=== PATIENT | male | born 1990 | race Caucasian/White ===

== ENCOUNTER 2020-02-17 19:33 | Emergency (ER) | payer OTHER ==
[~2020-02-17] VITALS: Ht 188 cm; Wt 70.3 kg
--- NOTE | ~2020-02-17 | EMS ---
[facility] [address] [place] [address] EMS Patient Care Report Name: EVY GONZALEZ Room #: DEP VIOLETTE Larsen#: [id number] Admission: 02/17/20 Attend Phys: Discharge: 02/17/20 Date of : [birth year] Report #: [id number] THIS REPORT FOR: //name// Report Transmitted: 02/18/2020 19:01 EMS Care Summary [place], [place]/[facility] Incident [id number] @ 02/18/2020 19:16 Incident Location [address] [place] [id number] Patient EVY GONZALEZ Male, 29 Years 1990 Patient Address HOMELESS Chief Complaint "TOOK ALL THE DRUGS" Disposition Transported No Lights/[place] Dispatch Reason Overdose/Poisoning/Ingestion Transported To [facility] Narrative UPON ARRIVAL PT STANDING WITH POLICE CONSCIOUS AND ALERT. POLICE STATE PT HAD WANDERED INTO A RANDOM HOUSE AND UP THE STAIRS WHEN POLICE WERE CALLED. PT WAS NOT VIOLENT JUST ACTING STRANGE LIKE HE LIVED THERE. PT STATES HE HAS DONE ALL THE DRUGS BUT WILL NOT STATE WHAT THEY WERE OR HOW THEY WERE TAKEN. PT DOES NOT ANSWER MOST QUESTIONS AND WILL MURMUR TO HIMSELF. PT DID TRY TO SWING FROM THE CEILING OF THE MBULANCE AT ONE POINT BUT WAS CALM FOR THE MOST PART. PT TRANSPORTED TO [facility] THAT IS WERE THE DISCHARGE PAPERWORK IN HIS POCKET STATES HE WAS YESTERDAY. Initial Vitals @19:35P: 105,CO: 3,SpO2: 96, @19:24P: 99,R: 20,BP: 133/92,Pain: 0/10,GCS: 14,SpO2: 98,Revised Trauma: 12, [facility] [address] [place] [address] EMS Patient Care Report Name: EVY GONZALEZ Room #: DEP Chava#: [id number] Admission: 02/17/20 Attend Phys: Discharge: 02/17/20 Date of : [birth year] Report #: [id number] @19:36P: 104,R: 20,BP: 130/87,GCS: 14,CO: 4,SpO2: 96,Revised Trauma: 12, Assessments @19:24MENTAL:Other,SKIN:HEENT:Head/Face: No Abnormalities,LUNG SOUNDS:General: No Abnormalities,ABDOMEN:General: No Abnormalities,PELVIS//GI:EXTREMITIES:Left Arm: No Abnormalities,Right Arm: No Abnormalities,Left Leg: No Abnormalities,Right Leg: No Abnormalities,PULSE:Radial: 2+ Normal,NEURO:No Abnormalities, Impression Behavioral/psychiatric episode Procedures @19:24ALS AssessmentResponse: UnchangedSucceeded Timeline 19:16,Call Received 19:16,Dispatch Notified 19:16,Dispatched 19:17,En Route 19:21,On Scene 19:22,At Patient 19:24,ALS Assessment,Response: UnchangedSucceeded, 19:24,BP: 133/92 M,PULSE: 99,RR: 20 R,SPO2: 98 Ox,ETCO2: ,BG: ,PAIN: 0,GCS: 14, 19:27,Depart Scene 19:35,BP: / M,PULSE: 105,RR: R,SPO2: 96 Ox,ETCO2: ,BG: ,PAIN: ,GCS: , 19:36,BP: 130/87 M,PULSE: 104,RR: 20 R,SPO2: 96 Ox,ETCO2: ,BG: ,PAIN: ,GCS: 14, 19:38,At Destination 20:00,Call Closed Disclaimer v1.1 Copyright 2020 [employer] This EMS Care Summary contains data elements from the applicable legal record (which may be displayed differently). It is designed to provide pertinent information for the following purposes: continuity of care, clinical quality, and state data reporting. The complete legal record is available to ED staff and administrators of the receiving hospital in [employer] Patient Tracker. All data is provided "as is."
[2020-02-17 20:53] LABS: ABSOLUTE NEUTROPHILS 3.2 thou/uL (1.4-8.2); WBC 5.5 thou/uL (4.0-11.0)
[2020-02-17 20:54] LABS: BASOPHILS 0.2 % (0.0-2.0); EOSINOPHILS 0.1 % (0.0-3.0); HEMATOCRIT 39.3 % (42.0-52.0); HEMOGLOBIN 13.4 gm/dL (14.0-18.0); LYMPHOCYTES 32.9 % (24.0-44.0); MCH 30.2 pg (26.0-34.0); MCHC 34.2 g/dL (28.0-37.0); MCV 88.2 fL (80.0-100.0); PLATELET COUNT 180 thou/uL (150-400); POLYS 57.8 % (36.0-66.0); RBC 4.46 mil/uL (4.50-6.00)
[2020-02-17 20:55] LABS: CREATININE 1.1 mg/dL (0.7-1.3); POTASSIUM 3.5 mmol/L (3.5-5.1)
[2020-02-17 20:56] LABS: MAGNESIUM 2.1 mg/dL (1.8-2.4)
[2020-02-17 22:44] VITALS: BP 130/80
--- NOTE | 2020-02-18 09:35 | EKG ---
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
== END 2020-02-17 22:51 | disposition home or self-care (01) ==
LOC: EDBD 19:33 → ER 19:33
PROVIDERS: Emergency Medicine
DX: R55 Syncope and collapse (principal); R42 Dizziness and giddiness; F17.210 Nicotine dependence, cigarettes, uncomplicated